=== PATIENT | male | born 1960 | race Caucasian/White ===

== ENCOUNTER 2017-06-17 19:52 | Emergency (ER) | payer OTHER ==
[2017-06-17] MEDS ORDERED: SODIUM CHLORIDE IV ONE (20:11)
--- NOTE | 2017-06-17 20:17 | EDPHY ---
H & P Stated Complaint: fever, fatigue Time Seen by Provider: 06/17/17 20:02 HPI/ROS: CHIEF COMPLAINT: Fever HISTORY OF PRESENT ILLNESS: The patient is a 57-year-old morbidly obese diabetic man with history of chronic lower extremity wounds whose brother brings him to the emergency department complaining of fatigue and fever at home. He has erythema and mild swelling to his right lower extremity seems to be centered around a chronically healing dorsal foot ulcer. He denies respiratory symptoms. He denies GI symptoms. He denies chest pain. He denies urinary symptoms other than that his penis retracts when he tries to urinate. REVIEW OF SYSTEMS: Constitutional: denies: chills, fever, recent illness, recent injury EENTM: denies: blurred vision, double vision, nose congestion Respiratory: denies: cough, shortness of breath Cardiac: denies: chest pain, irregular heart rate, lightheadedness, palpitations Gastrointestinal/Abdominal: denies: abdominal pain, diarrhea, nausea, vomiting, blood streaked stools Genitourinary: See HPI denies: dysuria, frequency, hematuria, pain Musculoskeletal: denies: joint pain, muscle pain Skin: See HPI Neurological: denies: headache, numbness, paresthesia, tingling, dizziness, weakness Hematologic/Lymphatic: denies: blood clots, easy bleeding, easy bruising Immunologic/allergic: denies: HIV/AIDS, transplant EXAM: GENERAL: Well-appearing, well-nourished and in no acute distress. HEAD: Atraumatic, normocephalic. EYES: Pupils equal round and reactive to light, extraocular movements intact, sclera anicteric, conjunctiva are normal. ENT: TMs normal, nares patent, oropharynx clear without exudates. Moist mucous membranes. NECK: Normal range of motion, supple without lymphadenopathy or JVD. LUNGS: Breath sounds clear to auscultation bilaterally and equal. No wheezes rales or rhonchi. HEART: Regular rate and rhythm without murmurs, rubs or gallops. ABDOMEN: Soft, nontender, normoactive bowel sounds. No guarding, no rebound. No masses appreciated. BACK: No CVA tenderness, no spinal tenderness, step-offs or deformities EXTREMITIES: Normal range of motion, no pitting or edema. No clubbing or cyanosis. NEUROLOGICAL: Cranial nerves II through XII grossly intact. Normal speech, normal gait. 5/5 strength, normal movement in all extremities, normal sensation PSYCH: Normal mood, normal affect. SKIN: Chronically healing ulcer and wounds to both lower extremities, right lower extremity with mild edema and warmth and erythema. Also chronic vasculitic changes. Source: Patient Exam Limitations: No limitations - Personal History Current Tetanus/Diphtheria Vaccine: Unsure Current Tetanus Diphtheria and Acellular Pertussis (TDAP): Unsure - Medical/Surgical History Hx Asthma: No Hx Chronic Respiratory Disease: No Hx Diabetes: Yes Hx Cardiac Disease: Yes Hx Renal Disease: No Hx Cirrhosis: No Hx Alcoholism: No Hx HIV/AIDS: No Hx Splenectomy or Spleen Trauma: No Other PMH: medical- DM II, HTN, HLD, gout, SURESH. surigcal- bone chip removed from ankle - Family History Significant Family History: No pertinent family hx - Social History Smoking Status: Never smoked Alcohol Use: Sober Drug Use: None Constitutional: Initial Vital Signs Temperature (C) 37.8 C 06/17/17 19:57 Heart Rate 126 H 06/17/17 19:57 Respiratory Rate 16 06/17/17 19:57 Blood Pressure 132/86 H 06/17/17 19:57 O2 Sat (%) 88 L 06/17/17 19:57 O2 Delivery Mode Nasal Cannula O2 (L/minute) 2 Allergies/Adverse Reactions: No Known Allergies Allergy (Unverified 06/17/17 19:55) Home Medications: Medication Instructions Recorded Simvastatin [Zocor 10 mg] 10 mg PO DAILY18 01/17/13 Allopurinol [Allopurinol 300 MG 300 mg PO DAILY 03/04/14 (RX)] Cholecalciferol Vit D3 [Vitamin D3 2,000 units PO DAILY 03/04/14 (*)] Insulin Glargine,Hum.rec.anlog 6 unit SQ TIDMEAL 03/04/14 [Lantus Solostar] Insulin Lispro [humALOG LISPRO 100 12 unit SC BID 03/04/14 units/ml (*)] Metformin HCl [Metformin 1000 mg] 1,000 mg PO BIDMEAL 03/04/14 traZODone [traZODone 150MG (*)] 300 mg PO HS 03/04/14 traMADol [Ultram 50 mg (*)] 100 mg PO BID #0 tab 03/28/14 Medical Decision Making ED Course/Re-evaluation: This morbidly obese febrile tachycardic patient appears to have cellulitis likely extending from chronic wounds to his right foot. Will obtain sepsis workup as well as ultrasound of his lower extremity. He is a [place] patient and will likely need to be transferred there. Initially fluid bolus for sepsis protocol ordered however the patient's lactate is 1.5. We will stop 2 L considering his weight. 9:14 p.m. the patient is septic but not severe septic. His creatinine is not greater than 2.0. We will stop it 2 L of fluid. Start him on Rocephin for cellulitis and diabetic foot infection. Have paged [place] for transfer. 9:20 p.m. I spoke with the [place] physician special education science teacher Dr Gibbons who will accept him in transfer to [facility]. Differential Diagnosis: Partial list of the Differential diagnosis considered include but were not limited to; cellulitis, sepsis, severe sepsis, urinary tract infection and although unlikely based on the history and physical exam, I also considered pneumonia, bronchitis endocarditis, meningitis. - Data Points Laboratory Results: Laboratory Results 06/17/17 20:10 06/17/17 20:10 Microbiology Results: MICROBIOLOGY 06/17/17 20:10 Blood Blood Culture - Preliminary 06/17/17 20:10 Blood Blood Culture - Preliminary Medications Given: Discontinued Medications Sodium Chloride (Ns) 4,800 mls @ 9,600 mls/hr 30 ml/kg infuse over 30 min ( 4800 ml) IV EDNOW ONE PRN Reason: Protocol Stop: 06/17/17 20:40 Last Admin: 06/17/17 20:19 Dose: 2,000 mls Ceftriaxone Sodium/Dextrose (Rocephin 1 Gm (Premix)) 50 mls @ 100 mls/hr IV EDNOW ONE PRN Reason: Protocol Stop: 06/17/17 21:39 Last Admin: 06/17/17 21:21 Dose: 50 mls Departure - Departure Disposition: Acute Care Hospital [facility] Clinical Impression: Cellulitis of right lower leg Sepsis Qualifiers: Sepsis type: sepsis due to unspecified organism Qualified Code(s): A41.9 - Sepsis, unspecified organism Condition: Fair Referrals: OCHOA,UNKNOWN [Other] - As per Instructions
[2017-06-17 20:37] LABS: % IMMATURE GRANULYOCYTES 0.5 % (0.0-1.1); ABSOLUTE IMMATURE GRANULOCYTES 0.05 10^3/uL (0.00-0.10); ABSOLUTE NRBC COUNT 0.02 10^3/uL (0-0.01); ADD DIFF? NO; ADD MORPH? NO; ADD SCAN? NO; ATYPICAL LYMPHOCYTE FLAG 0 (0-99); FRAGMENT RBC FLAG 0 (0-99); HEMATOCRIT 40.8 % (40.0-51.0); HEMOGLOBIN 13.8 g/dL (13.7-17.5); LEFT SHIFT FLG 90 (0-99); LIPEMIA HEMOLYSIS FLAG 90 (0-99); MEAN CELL HEMOGLOBIN 30.8 pg (27.9-34.1); MEAN CELL HEMOGLOBIN CONCENTR. 33.8 g/dL (32.4-36.7); MEAN CELL VOLUME 91.1 fL (81.5-99.8); MEAN PLATELET VOLUME 10.9 fL (8.7-11.7); NRBC-AUTO% 0.2 % (0.0-0.2); PLATELET CLUMPS FLAG 0 (0-99); PLATELET COUNT 162 10^3/uL (150-400); RED BLOOD CELL COUNT 4.48 10^6/uL (4.40-6.38)
[2017-06-17 20:45] LABS: INR 1.14 (0.83-1.16); PROTIME(PATIENT) 14.5 SEC (12.0-15.0)
[2017-06-17 20:46] LABS: APTT 33.2 SEC (23.0-38.0)
[2017-06-17 20:55] LABS: ANION GAP 12 mEq/L (8-16); BILIRUBIN,TOTAL 0.9 mg/dL (0.1-1.4); CALCIUM 8.5 mg/dL (8.5-10.4); CARBON DIOXIDE 23 mEq/l (22-31); CHLORIDE 99 mEq/L (97-110); GLOMERULAR FILTRATION RATE 35; GLUCOSE 191 mg/dL (70-100); POTASSIUM 4.5 mEq/L (3.5-5.2); SODIUM 134 mEq/L (134-144)
[2017-06-17 22:11] VITALS: TEMP 100.2
[2017-06-17 22:33] LABS: COLOR YELLOW; LEUKOCYTE ESTERASE,URINE NEGATIVE (NEGATIVE); NITRITE,URINE NEGATIVE (NEGATIVE)
[2017-06-17 22:37] LABS: AMORPHOUS PRESENT /hpf (NONE-1+); MUCUS TRACE /lpf (NONE-1+); WBC,URINE NONE SEEN /hpf (0-3)
[2017-06-17 22:38] VITALS: RESP 20
[2017-06-17 22:40] VITALS: BP 118/72; PULSE 102; O2SAT 95
== END 2017-06-17 22:39 | disposition short-term general hospital (02) ==
DX: A41.9 Sepsis, unspecified organism (principal); L03.115 Cellulitis of right lower limb; I10 Essential (primary) hypertension; E11.9 Type 2 diabetes mellitus without complications; E86.9 Volume depletion, unspecified; Z79.4 Long term (current) use of insulin; Z79.84 Long term (current) use of oral hypoglycemic drugs
CPT/HCPCS: 96365; J0696